=== PATIENT | female | born 2000 | race Two or more races ===

== ENCOUNTER 2024-02-25 10:51 | Outpatient (CLI) | payer OTHER | END 2024-02-25 10:55 | disposition home or self-care (01) | LOC: PRENATAL 10:51 | PROVIDERS: ATTEND Obstetrics & Gynecology Maternal & Fetal Medicine | DX: O44.00 Complete placenta previa NOS or without hemorrhage, unspecified trimester (principal); O34.00 Maternal care for unspecified congenital malformation of uterus, unspecified trimester; Z3A.19 19 weeks gestation of pregnancy ==

== ENCOUNTER → 2024-04-16 | Outpatient (CLI) | payer OTHER | END | disposition home or self-care (01) | LOC: PRENATAL 07:56 | PROVIDERS: ATTEND Obstetrics & Gynecology Maternal & Fetal Medicine | DX: O44.00 Complete placenta previa NOS or without hemorrhage, unspecified trimester (principal); Z3A.20 20 weeks gestation of pregnancy ==

== ENCOUNTER 2024-05-26 09:59 | Outpatient (CLI) | payer OTHER | END 2024-05-26 10:00 | disposition home or self-care (01) | LOC: PRENATAL 09:59 | PROVIDERS: ATTEND Obstetrics & Gynecology Maternal & Fetal Medicine | DX: O26.849 Uterine size-date discrepancy, unspecified trimester (principal); O36.8199 Decreased fetal movements, unspecified trimester, other fetus; O34.00 Maternal care for unspecified congenital malformation of uterus, unspecified trimester; O36.5990 Maternal care for other known or suspected poor fetal growth, unspecified trimester, not applicable or unspecified; Z3A.31 31 weeks gestation of pregnancy ==

== ENCOUNTER → 2024-05-29 | Emergency (ER) | payer OTHER ==
[~2024-05-29] VITALS: Ht 167.6 cm; Wt 68.0 kg
[~2024-05-29] MED LIST: FOLIC ACID0.4 MG; PRENATABS FA T1 EACH
== END | disposition left against medical advice (07) ==
LOC: ER 00:22
DX: Z53.21 Procedure and treatment not carried out due to patient leaving prior to being seen by health care provider (principal)

== ENCOUNTER 2024-06-01 08:48 | Inpatient (IN) | payer OTHER ==
[~2024-06-01] VITALS: Ht 172.7 cm; Wt 1.8 kg
[2024-06-01 07:57] VITALS: BP 117/78
[2024-06-01] MEDS ORDERED: TERBUTALINE SULFATE 1 MG/ML AMPUL ONE (09:04)
[2024-06-01] MEDS ORDERED: AZITHROMYCIN 500 MG VIAL IV ONE (09:06)
[2024-06-01] MEDS ORDERED: TERBUTALINE SULFATE 1 MG/ML AMPUL SUBCUTANEO ONE (09:45)
[2024-06-01] MEDS ORDERED: AZITHROMYCIN 500 MG VIAL IV SCH (09:45)
[2024-06-01] MEDS ORDERED: RINGERS SOLUTION,LACTATED 1,000 ML IV SCH (09:45)
[2024-06-01 10:31] VITALS: BP 117/78
[2024-06-01] MEDS ORDERED: MAGNESIUM SULFATE IN WATER 4 GM/100 ML PIGGYBACK IV ONE (10:43)
[2024-06-01 10:47] VITALS: BP 122/74
[2024-06-01 10:50] LABS: PH,URINE 6.5 (5.0-8.0); URINE APPEARANCE Clear; URINE BILIRRUBIN Negative (NEGATIVE); URINE BLOOD Trace; URINE COLOR Yellow; URINE GLUCOSE Negative (NEGATIVE); URINE KETONE Negative (NEGATIVE); URINE LEUKOCYTE Negative; URINE NITRATE Negative; URINE PROTEIN Negative (NEGATIVE); URINE UROBILINOGEN 0.2 E.U./dl
[2024-06-01] MEDS ORDERED: AMPICILLIN SODIUM 2,000 MG VIAL IV STA (10:51)
[2024-06-01 10:52] LABS: URINE BACTERIA 160.2 uL (0.0-1933); URINE EPITHELIAL CELLS 4.4 uL (0.0-38.8); URINE WBC 10.9 uL (0.0-23.2)
[2024-06-01] MEDS ORDERED: BETAMETHASONE ACETATE,SOD PHOS 30 MG/5 ML ML IM STA (10:52)
[2024-06-01 10:53] LABS: HEMATOCRIT 35.7 % (36.0-45.00); HEMOGLOBIN 12.3 g/dL (12.0-15.00); MEAN CELL VOLUME 92.1 fL (80.00-100.00); MEAN CORPUSCULAR HEMOGLOBIN 31.6 pg (27.00-32.0); MEAN CORPUSCULAR HGB CONC 34.4 g/dl (32.0-36.0); PLATELET COUNT 137 K/uL (150-450); RED BLOOD COUNT 3.87 M/uL (4.00-6.00); RED CELL DISTRIBUTION WIDTH 13.2 % (11.5-14.5)
[2024-06-01 11:00] LABS: URINE RBC 0.2 uL (0.0-20.8)
[2024-06-01] MEDS ORDERED: MAGNESIUM SULFATE IN WATER 100 ML IV NR (11:00)
[2024-06-01 11:19] LABS: INR 0.97; PARTIAL THROMBOPLASTIN TIME 30.4 SECONDS (22.0-34.0); PROTHROMBIN TIME 10.6 SECONDS (9.0-11.5)
[2024-06-01 11:57] LABS: ALBUMIN 2.7 gm/dL (3.4-5.0); BILIRUBIN TOTAL 0.23 mg/dL (0.3-1.2); CALCIUM 8.8 mg/dL (8.5-10.1); CREATININE SERUM 0.62 mg/dL (0.55-1.02); GFR 120.37; GLOBULINA 3.7 G/DL (2.4-3.5); POTASSIUM 3.73 mEq/L (3.5-5.1); TOTAL PROTEIN 6.4 gm/dL (6.4-8.2)
[2024-06-01] MEDS ORDERED: CHLORHEXIDINE GLUCONATE 120 ML BOTTLE TOP ONE ×2 (15:04→16:30)
[2024-06-01] MEDS ORDERED: OXYTOCIN 20 UNITS/1000ML RL PIGGYBAG IV ONE ×2 (15:04→16:30)
[2024-06-01] MEDS ORDERED: LIDOCAINE HCL 1% 10ML VIAL ONE (15:04)
[2024-06-01] MEDS ORDERED: ERYTHROMYCIN BASE OPHT 1GM EACH TUBE OP ONE ×2 (15:04→16:30)
[2024-06-01] MEDS ORDERED: OXYTOCIN 500 ML IV SCH (15:30)
[2024-06-01] MEDS ORDERED: CARBOPROST TROMETHAMINE 250 MCG/ML AMPUL IM ONE (16:13)
[2024-06-01] MEDS ORDERED: CARBOPROST TROMETHAMINE 250 MCG/ML AMPUL IM STA (16:28)
[2024-06-01] MEDS ORDERED: ACETAMINOPHEN 325 MG TABLET PO PRN (16:30)
[2024-06-01] MEDS ORDERED: OxyCODONE HCL/APAP UD (PERCOCET) PO PRN (16:30)
[2024-06-01] MEDS ORDERED: HYDROCORTISONE 2.5% 30 GM TUBE RECTAL SCH (17:00)
[2024-06-01] MEDS ORDERED: BENZOCAINE/MENTHOL 90 ML BOTTLE TOP SCH (17:00)
[2024-06-01] MEDS ORDERED: ACETAMINOPHEN 325 MG TABLET PO ONE (17:20)
[2024-06-01 19:06] VITALS: BP 118/76
[2024-06-02] VITALS: BP 100/57
[2024-06-02 01:22] LABS: HEMATOCRIT 34.9 % (36.0-45.00); HEMOGLOBIN 11.7 g/dL (12.0-15.00); MEAN CELL VOLUME 93.6 fL (80.00-100.00); MEAN CORPUSCULAR HEMOGLOBIN 31.3 pg (27.00-32.0); MEAN CORPUSCULAR HGB CONC 33.4 g/dl (32.0-36.0); RED BLOOD COUNT 3.73 M/uL (4.00-6.00); RED CELL DISTRIBUTION WIDTH 13.1 % (11.5-14.5)
[2024-06-02 01:23] LABS: PLATELET COUNT 142 K/uL (150-450)
[2024-06-02 08:44] VITALS: BP 110/74
[2024-06-02 16:00] VITALS: BP 111/67
[2024-06-03] VITALS: BP 115/73
[2024-06-03 08:40] VITALS: BP 115/74
[2024-06-03 16:31] VITALS: BP 100/66
== END 2024-06-03 17:34 | disposition home or self-care (01) | DRG 807 ==
LOC: OBS/DEL 08:48 → LDR 10:06 → OBS/DEL 10:06 → OB/GYN 16:57
PROVIDERS: ADMIT Specialist; ATTEND Specialist
PROC: 10E0XZZ Delivery of Products of Conception, External Approach (ICD-10-PCS; principal; 2024-06-01)
PROC: 4A1HXCZ Monitoring of Products of Conception, Cardiac Rate, External Approach (ICD-10-PCS; 2024-06-01)
DX: O60.14X0 Preterm labor third trimester with preterm delivery third trimester, not applicable or unspecified (principal); Z37.0 Single live birth; O34.03 Maternal care for unspecified congenital malformation of uterus, third trimester; Q51.3 Bicornate uterus; Z3A.33 33 weeks gestation of pregnancy; Z3A.28 28 weeks gestation of pregnancy